=== PATIENT | female | born 1975 | race Caucasian/White ===

== ENCOUNTER → 2016-10-20 | Outpatient (CLI) | payer OTHER ==
--- NOTE | 2016-10-20 13:05 | US ---
October 20, [address] Clements, Thank you for allowing us to see your patient regarding AMA over 40 and Grave's/now hypothyroid. As you know she is a 40 year-old 2, para 1. Her due date is 12/03/16 which is based on 6 week u/s . Her current gestational age based on this dating is 33 weeks 5 days. She was seen previously for t he same. Number of fetuses: 1 Placental location: left lateral no previa presentation: vertex Cervix: suboptimal MVP: 4.9 cm Measurements: Biparietal diameter: 91 mm 36 weeks, 5 days Head circumference: 338 mm 38 weeks, 6 days Abdominal circumference: 318 mm 35 weeks, 5 days Femur length: 65 mm 33 weeks, 5 days Humerus length: 57 mm 33 weeks, 3 days Average ultrasound age: 36 weeks, 2 days Estimated weight: 2712 gm weight percentile: 91 % ANATOMY anatomy was previously assessed. Today the following structures were visualized and appeared n ormal: Supratentorial brain, heart rate 133 bpm, LVOT, RVT, aortic arch, ductal arch, stomach, bladder, right left kidneys The neck was suboptimally seen today however the neck was in a persistent flexed position with no concern for goiter. Impression: This is a 40 year-old, 2, para 1at 33 weeks, 5 days gestation. 1. SIUP with biometry cw ga of 33 weeks. Nl MVP. Limited anatomy reassuring. 2. AMA- she will start NSTs at 36 weeks and planning delivery at 39 weeks 3. Graves- with antibodies <2xnormal, no evidence thyroid disorder. She will continue levothy roxine and evaluation. Thank you for allowing me to see your patient. Approximately 15 minutes was spent with the patient a nd 15 was spent discussing her issues. Clara Soni MD Perinatologist Division of Maternal Medicine Department of Obstetrics and Gynecology [facility]
--- NOTE | 2016-10-20 15:21 | US ---
Follow Up Obstetrical Sonography Clinical History: 41-year-old female with advanced maternal age and a prior history of Graves' diseas e, now hypothyroid, presenting for assessment of anatomy and biometry. TECHNIQUE: A curvilinear 5 MHz transducer was used to sonographically evaluate the fetus and placenta . M-mode Doppler was used. Dr. Clara Soni was present. LMP: February 27, 2016, indicating an age of 33 weeks 5 days, and an estimated date of delivery of December. COMPARISON STUDIES: Obstetrical sonography, dated August 13, 2016 and September 22, 2016. FINDINGS: Again, there is a single viable intrauterine gestation. The fetus is currently vertex in pr esentation. The placenta is left lateral in position, with no previa. Maternal cervical length was no t able to be assessed because of the presence of the head's obscuring the anatomy. The amniotic fluid volume is appropriate with a maximal vertical pocket of 4.9 cm. heart rate is 133 bpm. anatomy has been previously evaluated and on today's study, the supratentorial brain is seen in a limited fashion. The 4 chambered heart, right and left ventricular outflow tracts, aortic and duct al arch, stomach, right and left kidneys, and urinary bladder are seen. biometry is as follows: The biparietal diameter is 91 mm, corresponding to an age of 36 weeks 5 days +/- 3 weeks 2 days, whic h is greater than 98th percentile. The head circumference is 338 mm, corresponding to an age of 38 weeks 6 days +/- 2 weeks 5 days, whic h is greater than the 98th percentile. The head circumference is 318 mm corresponding to an age of 35 weeks 5 days +/- 3 weeks 0 days, which is at the 94th percentile. The femur length is 65 mm corresponding to an age of 33 weeks 5 days +/- 3 weeks 0 days, which is at 37th percentile. The humeral length is 57 mm corresponding to an age of 33 weeks 3 days for a composite gestational ag e of 36 weeks 2 days. The estimated weight is 2712 grams +/- 396 grams which is 6 lbs. 0 oz. +/- 14 ounces, which is at the 91st percentile. The head circumference to abdominal circumference ratio is normal, measuring 1.06. The femur length t o biparietal diameter ratio is 72%, and the femur length to abdominal circumference ratio is 21%. IMPRESSION: There is a single viable intrauterine gestation with no overt structural anomaly an d a normal amniotic fluid volume with biometry at the 91st percentile. Please also refer to Dr. Soni's separate assessments and specific recommendations for follow-up.
== END ==
LOC: FIMAGING 11:58
PROVIDERS: ATTEND Obstetrics & Gynecology
DX: O09.523 Supervision of elderly multigravida, third trimester (principal); O99.283 Endocrine, nutritional and metabolic diseases complicating pregnancy, third trimester; E03.9 Hypothyroidism, unspecified; Z3A.33 33 weeks gestation of pregnancy

== ENCOUNTER 2016-11-04 04:07 | Observation (INO) | payer OTHER ==
--- NOTE | 2016-11-05 17:44 | GHP ---
[f rep st] PREOP HISTORY AND PHYSICAL DATE OF ADMISSION: 11/04/2016 This is an admission and discharge note HISTORY OF PRESENTING ILLNESS: The patient is a 41-year-old, 2, para 1-0-0-1, who was at 36+ weeks' gestation. She was awoken up in the middle of the night with left lower quadrant pain which appeared to be coming and going, so she presented to Labor and Delivery. The patient's cervix was ex amined and found to be fingertip and long, and very posterior. She had occasional contractions on th e monitor but status remained reassuring. The patient was given a large amount of p.o. hydrati on while on Labor and Delivery, and the pain resolved. She did develop pain in the right mid abdomen which she says is very common for her. The patient states she only has a couple glasses of water a day; we had a long discussion about fluid recommendations in labor, precautions, and kick cou nts. Patient does not appear to be in active labor and her pain has resolved. Her heart elaine ng was category 1. The patient was discharged to home with discharge precautions, labor precautions and kick counts. She will follow up in the office as scheduled next week. /[id number]/MODL
== END 2016-11-04 08:21 | disposition home or self-care (01) ==
LOC: FLD 04:07
PROVIDERS: ADMIT Obstetrics & Gynecology; ATTEND Obstetrics & Gynecology
DX: R10.32 Left lower quadrant pain (principal); O09.523 Supervision of elderly multigravida, third trimester; Z3A.36 36 weeks gestation of pregnancy
CPT/HCPCS: 59025; G0378

== ENCOUNTER 2016-11-26 05:32 | Inpatient (IN) | payer OTHER ==
--- NOTE | 2016-11-06 16:27 | GHP ---
[f rep st] PREOP HISTORY AND PHYSICAL Amended report DATE OF PLANNED PROCEDURE: 11/26/2016 PLANNED PROCEDURE: Repeat low transverse section. HISTORY OF PRESENT ILLNESS: The patient is a 41-year-old, 2, para 1-0-0 -1, who will be 39 weeks' gestation. She has a history of a previous low transverse section for arrest of descent and suspected cephalopelvic disproportion. The patient is planning on having a repeat section, especially because the baby has been measuring size greater than dates. The patient has been counseled on options of vaginal after section and is comfortable proceeding with repeat low transverse section. She declines tubal ligation. PAST MEDICAL HISTORY: History of Graves disease, currently hypothyroidism, questionable history of polycystic ovarian syndrome. MEDICATIONS: vitamins and Synthroid. ALLERGIES: No known drug allergies. SOCIAL HISTORY: Patient is . 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 She denies tobacco , alcohol, or drug use. FAMILY MEDICAL HISTORY: Noncontributory. BANQUET STEWARDESS HISTORY: Menarche, age 13. Periods every 30 days, lasting 3-4 days. She is a 2, para 1-0-0-1. In 12/2014, she had a primary low transverse section for arrest of descent after pushing for 5 hours. That was at 40 weeks and 3 days. Current has been uncomplicated. She has been followed by Endocrinology for her Graves disease and hypothyroidism and has had serial growth ultrasounds as the baby has been measuring in the 91st percentile. The patient has started 2 times a week nonstress tests for advanced maternal age. The patient denies any history of any abnormal Pap smears. However, she does have a history of genital warts. She does have a history of infertility. PHYSICAL EXAM: VITAL SIGNS: Stable. GENERAL APPEARANCE: Alert and oriented x3. HEART: Rate is regular/regular. LUNGS: Clear to auscultation bilaterally. ABDOMEN: Gravid, nondistended, nontender. EXTREMITIES: Revealed no calf tenderness or edema. PELVIC: Cervical exam was deferred. is in the vertex presentation, in the 91st percentile. heart tracings have been category 1. LABS: Blood type A positive, antibody screen negative, rubella immune. GBS was collected today. HBsAg negative, HIV negative. Her 50 g glucose was 110. Her Verifi screen was negative. Alpha-fetoprotein was negative. ASSESSMENT AND PLAN: A 41-year-old 2, para 1-0-0-1, who will be 39 weeks' gestation, who will have a repeat section. Previous was done for arrest of descent. The patient has been properly consented. /[id number]/MODL Add acc#, 11/26/16, stephanie BISHOP
[2016-11-26] MEDS ORDERED: LR 500 ML IV ONE (05:47)
[2016-11-26] MEDS ORDERED: CITRIC ACID/SODIUM CITRATE 30 ML UDCUP PO ONE (05:47)
[2016-11-26] MEDS ORDERED: ceFAZolin 2 GM/DEXTROSE 100 ML IV ONE (05:47)
[2016-11-26 06:27] LABS: % IMMATURE GRANULYOCYTES 0.5 % (0.0-1.1); ABSOLUTE IMMATURE GRANULOCYTES 0.03 10^3/uL (0.00-0.10); ADD DIFF? NO; ADD MORPH? NO; ADD SCAN? NO; ATYPICAL LYMPHOCYTE FLAG 20 (0-99); FRAGMENT RBC FLAG 0 (0-99); HEMATOCRIT 40.9 % (38.0-47.0); LEFT SHIFT FLG 0 (0-99); LIPEMIA HEMOLYSIS FLAG 90 (0-99); MEAN CELL HEMOGLOBIN 31.3 pg (27.9-34.1); MEAN CELL HEMOGLOBIN CONCENTR. 34.2 g/dL (32.4-36.7); MEAN CELL VOLUME 91.3 fL (81.5-99.8); MEAN PLATELET VOLUME 10.5 fL (8.7-11.7); PLATELET CLUMPS FLAG 0 (0-99); PLATELET COUNT 205 10^3/uL (150-400); RED BLOOD CELL COUNT 4.48 10^6/uL (4.18-5.33); RED CELL DISTRIBUTION WIDTH 14.6 % (11.5-15.2)
[2016-11-26] MEDS ORDERED: OXYTOCIN 10 UNIT/ML VIAL ONE (06:48)
[2016-11-26] MEDS ORDERED: MISOPROSTOL 200 MCG TAB ONE (06:48)
[2016-11-26] MEDS ORDERED: AMMONIA AROMATIC 1 EACH AMP IH ONE (06:48)
[2016-11-26] MEDS ORDERED: TERBUTALINE SULFATE 1 MG/ML VIAL ONE (06:48)
[2016-11-26] MEDS ORDERED: morphINE PF 5 MG/10 ML INJ ONE (07:41)
[2016-11-26] MEDS ORDERED: LACTULOSE 20 GM/30 ML UDCUP PO PRN (09:02)
[2016-11-26] MEDS ORDERED: BISACODYL 10 MG SUPP PR PRN (09:02)
[2016-11-26] MEDS ORDERED: POLYETHYLENE GLYCOL 3350 17 GM PKT PO PRN (09:02)
[2016-11-26] MEDS ORDERED: SIMETHICONE 80 MG TAB CHEW PO PRN (09:02)
[2016-11-26] MEDS ORDERED: MAGNESIUM HYDROXIDE 30 ML UDCUP PO PRN (09:02)
[2016-11-26] MEDS ORDERED: ACETAMINOPHEN 325 MG TAB PO PRN (09:02)
--- NOTE | 2016-11-26 09:06 | OBPROC ---
- Delivery Pre-op Diagnoses: IUP 39 weeks, prior c section, declines trial of labor Post-op Diagnoses: same Procedure: Repeat, Low Transverse Surgeon: Bharti Clements [place] Justice: Melisa Conte Anesthesiologist: Paco Rueda Warm Anesthesia: Spinal Complications: None EBL: 800 - [place] Info A Delivery Date: 11/26/16 Delivery Time: 08:13 Sex of : Male Score (1 Min): 9 Score (5 Min): 9
--- NOTE | 2016-11-26 10:06 | GOP ---
DATE OF OPERATION: 11/26/2016 SURGEON: Bharti Clements DO BATH TESTER: Melisa Conte DO. ANESTHESIA: Spinal. ANESTHESIOLOGIST: Dr. Yates. PREOPERATIVE DIAGNOSIS: 1. Intrauterine at 39 weeks gestation. 2. History of previous section. 3. Declines trial of labor. POSTOPERATIVE DIAGNOSIS: 1. Intrauterine at 39 weeks gestation. 2. History of previous section. 3. Declines trial of labor. PROCEDURE PERFORMED: Repeat low transverse section. FINDINGS: 1. Viable 8 pound male in the cephalic presentation delivered at 8:13 a.m. Apgars were 9 and 9. 2. Intact placenta with 3-vessel cord. 3. Normal ovaries, uterus, and tubes. ESTIMATED BLOOD LOSS: 800 cc. INDICATIONS: Patient is a 41-year-old, 2, para 1-0-0-1, who is 39 weeks gestation. She has a history of a previous low transverse for arrest of descent and declines trial of labor a nd desires repeat . She has been followed with serial growth ultrasounds in . Th e patient presents today for a repeat low transverse section. She declines tubal ligation. Risks and benefits of the procedure were reviewed with the patient and patient has been properly c onsented. DESCRIPTION OF PROCEDURE: Patient is taken to the operating room with intravenous fluids in place. She was given 2 g of Ancef and seated on the operating room table where spinal anesthesia was obtai yury with ease. She was then repositioned into the dorsal supine position with a leftward tilt. A F oley catheter was placed. Venodynes were placed on her lower extremities and she was then prepped a nd draped in a normal sterile fashion. Anesthesia was assessed and found to be adequate. A Pfannen stiel skin incision was then made 2 fingerbreadths above the pubic symphysis. A previous keloid sca r was then excised at time of incision. The incision was then carried through to the underlying lay er of fascia with the Bovie. The fascia was then nicked in the midline and the fascial incision was extended laterally. The superior aspect of the fascial incision was then grasped with Kochers, ten andres up, and the underlying rectus muscle dissected off bluntly with the Bovie. Attention was then t urned to the inferior aspect of the fascial incision which was then grasped with Kochers, tented up, and the underlying rectus muscle dissected off with the Lopes scissors. The rectus muscle was then in the midline. The peritoneum was identified, tented up, and entered sharply with the Me tzenbaum scissors. The incision was extended superiorly and inferiorly with excellent visualization of the bladder. The bladder blade was inserted. The vesicouterine peritoneum was identified, tent ed up, and entered sharply with the Metzenbaum scissors. The incision was extended laterally and a bladder flap was created digitally. The bladder blade was then reinserted. The uterus was then inc ised in low transverse fashion with the scalpel. The uterine incision was digitally extended latera lly. Membranes were artificially ruptured. A large amount of clear fluid was noted. The 's head was then delivered through the incision and the remainder of the infant's body was then deliver ed atraumatically. The cord was clamped x2 and cut. Cord blood was obtained. The infant was sky d off to awaiting nurse practitioner. Intact placenta with 3-vessel cord delivered without difficulty. The uterus was then exteriorized and cleared of all clots and debris and wrapped in a moist laparotomy sponge. The uterine incision was then closed with 0 Vicryl in a running, locked fa shion. A second 0 Vicryl stitch was used to imbricate the uterine incision. Hemostasis was assured . Ovaries, uterus, and tubes were unremarkable. The uterus was then returned to the patient's abdo men and the gutters were cleared of all clots and debris. The hysterotomy remained hemostatic. Per itoneum was reapproximated with 3-0 Vicryl in a running fashion. Rectus muscle was reapproximated w ith 2-0 Vicryl in a running fashion. Fascia was closed with 0 Vicryl in a running fashion. Subcuta neous tissue was found to be hemostatic and the subcuticular tissue was reapproximated with 3-0 Vicr yl in a running fashion. The skin was then closed with sapna. Sponge, lap, and needle counts wer e correct x2. Patient was transported to the recovery room in stable condition. /[id number]/MODL
[2016-11-26] MEDS ORDERED: KETOROLAC 30 MG/1 ML SDV ONE (10:12)
[2016-11-26] MEDS: KETOROLAC 30 MG/1 ML SDV IVP SCH ×3 (10:13→22:17)
[2016-11-26] MEDS: LR 1,000 ML IV SCH (16:20)
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
[2016-11-26] MEDS: SENNOSIDES/DOCUSATE SODIUM TAB PO SCH (22:18)
[2016-11-27] MEDS: LR 1,000 ML IV SCH (01:35)
[2016-11-27] MEDS: KETOROLAC 30 MG/1 ML SDV IVP SCH (04:47)
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
[2016-11-27] MEDS: HYDROCODONE/APAP 5/325 TAB PO PRN ×4 (09:16→20:33)
[2016-11-27] MEDS: SENNOSIDES/DOCUSATE SODIUM TAB PO SCH ×2 (09:17→20:33)
[2016-11-27] MEDS: LEVOTHYROXINE 50 MCG TAB PO SCH (09:19)
[2016-11-27] MEDS: IBUPROFEN 600 MG TAB PO PRN ×3 (10:49→23:33)
[2016-11-28] MEDS: IBUPROFEN 600 MG TAB PO PRN ×3 (05:54→18:29)
[2016-11-28] MEDS: HYDROCODONE/APAP 5/325 TAB PO PRN ×4 (05:55→23:05)
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
[2016-11-28] MEDS: SENNOSIDES/DOCUSATE SODIUM TAB PO SCH ×2 (08:42→20:53)
[2016-11-28] MEDS: LEVOTHYROXINE 50 MCG TAB PO SCH (12:48)
[2016-11-28 20:52] VITALS: O2SAT 90
[2016-11-29] MEDS: IBUPROFEN 600 MG TAB PO PRN ×3 (00:33→12:50)
[2016-11-29] MEDS: HYDROCODONE/APAP 5/325 TAB PO PRN ×3 (04:42→14:19)
[2016-11-29] MEDS: LEVOTHYROXINE 50 MCG TAB PO SCH (07:49)
[2016-11-29] MEDS: SENNOSIDES/DOCUSATE SODIUM TAB PO SCH (08:52)
[2016-11-29 09:49] VITALS: BP 114/69; PULSE 88; RESP 18; TEMP 97.7
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
== END 2016-11-29 16:04 | disposition home or self-care (01) | DRG 766 ==
LOC: FLD 05:32 → FOB 11:56
PROVIDERS: ADMIT Obstetrics & Gynecology; ATTEND Obstetrics & Gynecology
PROC: 10D00Z1 Extraction of Products of Conception, Low, Open Approach (ICD-10-PCS; principal; 2016-11-26)
DX: O34.219 Maternal care for unspecified type scar from previous cesarean delivery (principal); O09.523 Supervision of elderly multigravida, third trimester; O99.284 Endocrine, nutritional and metabolic diseases complicating childbirth; E03.9 Hypothyroidism, unspecified; Z3A.39 39 weeks gestation of pregnancy; Z37.0 Single live birth
CPT/HCPCS: J0690; J1885; J2274; J3105

== ENCOUNTER 2017-06-05 15:49 | Emergency (ER) | payer OTHER ==
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
[2017-06-05 16:57] VITALS: BP 102/67; PULSE 83; RESP 15; TEMP 97.7; O2SAT 95
== END 2017-06-05 17:03 | disposition home or self-care (01) ==
DX: S92.515A Nondisplaced fracture of proximal phalanx of left lesser toe(s), initial encounter for closed fracture (principal); W22.01XA Walked into wall, initial encounter; Y92.009 Unspecified place in unspecified non-institutional (private) residence as the place of occurrence of the external cause; Y99.8 Other external cause status; Y93.01 Activity, walking, marching and hiking
CPT/HCPCS: L3260

== ENCOUNTER 2017-10-21 22:14 | Emergency (ER) | payer OTHER ==
[2017-10-21 22:20] VITALS: O2SAT 93
--- NOTE | 2017-10-21 22:46 | EDPHY ---
H & P Stated Complaint: fever/sore throat since AM Time Seen by Provider: 10/21/17 22:45 HPI/ROS: HPI: This is a 42-year-old female who presents with Chief Complaint: Fever and sore throat since this morning Location:throat Quality: Sore Duration: 1 day Signs and Symptoms:+ fever, no neck stiffness, + mild dull aching headache, + nausea, no vomiting, no body aches, no runny nose, no cough Timing: Sudden, constant Severity: Moderate Context: Patient is generally healthy presents with sudden onset of sore throat this morning that worsens with eating but is still able to drink fluids accompanied by subjective fever. Last took ibuprofen at 2:00 p.m. patient denies any cough/shortness of breath/neck stiffness/runny nose/body aches. Received influenza vaccine in August of 2017. LMP 2 weeks ago Modifying Factors: See above Comment: ROS: see HPI Constitutional: No fever, no chills, no weight loss Eyes: No blurred vision Respiratory: No shortness of breath, no cough Cardiovascular: No chest pain Gastrointestinal: No nausea, no vomiting, no diarrhea Genitourinary: No dysuria Extremities: No myalgias Neurologic: No weakness, no numbness Skin: No rashes Hematologic: No bruising, no bleeding MEDICAL/SURGICAL/SOCIAL HISTORY: Medical history: hyperthyrodism Hx previous C/S- arrest of descent Hx Graves disease, now hypothyroid AMA Surgical history: Denies Social history: Employed. CONSTITUTIONAL: Ill-appearing adult white female, awake and alert, no obvious distress HEENT: Atraumatic and normocephalic, PERRL, EOMI. Tympanic membranes clear. Oropharynx clear, tonsils 1+; no erythema; uvula midline; + white exudate and moist pink mucosa. Airway patent. No lymphadenopathy. No meningismus. Cardiovascular: Normal S1/S2, tachycardia, regular rhythm, without murmur rub or gallop. PULMONARY/CHEST: Symmetrical and nontender. Clear to auscultation bilaterally. Good air movement. No accessory muscle usage. ABDOMEN: Soft, nondistended, nontender, no rebound, no guarding, no peritoneal signs, no masses or organomegaly. No CVAT. EXTREMITIES: 2/2 pulses, strength 5/5, no deformities, no clubbing, no cyanosis or edema. NEUROLOGICAL: no focal neuro deficits. GCS 15. SKIN: Warm and dry, no erythema. no rash. Good capillary refill. Source: Patient Exam Limitations: No limitations - Personal History LMP (Females 10-55): 8-14 Days Ago Current Tetanus/Diphtheria Vaccine: Yes Tetanus Vaccine Date: <10 years - Medical/Surgical History Hx Asthma: No Hx Chronic Respiratory Disease: No Hx Diabetes: No Hx Cardiac Disease: No Hx Renal Disease: No Hx Cirrhosis: No Hx Alcoholism: No Hx HIV/AIDS: No Hx Splenectomy or Spleen Trauma: No Other PMH: hyperthyrodism. Hx previous C/S- arrest of descent. Hx Graves disease, now hypothyroid. AMA - Social History Smoking Status: Never smoked Constitutional: Initial Vital Signs Temperature (C) 37.6 C 10/21/17 22:16 Heart Rate 114 H 10/21/17 22:16 Respiratory Rate 18 10/21/17 22:16 Blood Pressure 105/55 L 10/21/17 22:16 O2 Sat (%) 93 10/21/17 22:16 Allergies/Adverse Reactions: dicloxacillin Allergy (Verified 10/21/17 22:20) Penicillins Allergy (Verified 06/05/17 15:53) Home Medications: Medication Instructions Recorded 1 tab PO DAILY 08/27/14 Lidocaine 2% Viscous 15 ml MM Q6 PRN #100 ml 10/22/17 Medical Decision Making ED Course/Re-evaluation: Strep test, influenza test, oral medications ordered Patient given Letha and PO Decadron 8 mg No Signs of tonsillar abscess/Ludwigs angina/meningitis/otitis media/sinusitis Abdominal exam benign and no urinary symptoms Influenza and strep negative. Labs reviewed with mild leukocytosis 0055: Reassessed patient and now she is requesting laboratory workup and IV fluids as she is concerned she has 2 small children at home and she does not want to get them sick. 0150: Reassessed patient who reports that she is feeling much better. She is ready to call an Uber and go home. This patient was seen under the supervision of my secondary supervising physician. I evaluated care for this patient independently. Discussed this patient with Dr. Marcelino who did not see the patient. Patient's presentation, labs/imaging, treatment and plan of care were discussed with secondary supervising physician. Differential Diagnosis: Adult fever including but not limited to viral syndromes including influenza, strep, viral syndrome and sepsis. - Data Points Laboratory Results: Laboratory Results 10/22/17 00:50 10/22/17 00:50 10/22/17 10/22/17 10/21/17 00:50 00:50 Unknown WBC 14.62 10^3/uL H 10^3/uL (3.80-9.50) RBC 4.81 10^6/uL 10^6/uL (4.18-5.33) Hgb 14.2 g/dL g/dL (12.6-16.3) Hct 41.2 % % (38.0-47.0) MCV 85.7 fL fL (81.5-99.8) MCH 29.5 pg pg (27.9-34.1) MCHC 34.5 g/dL g/dL (32.4-36.7) RDW 13.9 % % (11.5-15.2) Plt Count 256 10^3/uL 10^3/uL (150-400) MPV 9.6 fL fL (8.7-11.7) Neut % (Auto) 93.3 % H % (39.3-74.2) Lymph % (Auto) 3.6 % L % (15.0-45.0) [place] % (Auto) 2.4 % L % (4.5-13.0) Eos % (Auto) 0.0 % L % (0.6-7.6) Baso % (Auto) 0.3 % % (0.3-1.7) Nucleat RBC Rel Count 0.0 % % (0.0-0.2) Absolute Neuts (auto) 13.63 10^3/uL H 10^3/uL (1.70-6.50) Absolute Lymphs (auto) 0.53 10^3/uL L 10^3/uL (1.00-3.00) Absolute Monos (auto) 0.35 10^3/uL 10^3/uL (0.30-0.80) Absolute Eos (auto) 0.00 10^3/uL L 10^3/uL (0.03-0.40) Absolute Basos (auto) 0.05 10^3/uL 10^3/uL (0.02-0.10) Absolute Nucleated RBC 0.00 10^3/uL 10^3/uL (0-0.01) Immature Gran % 0.4 % % (0.0-1.1) Immature Gran # 0.06 10^3/uL 10^3/uL (0.00-0.10) Sodium 137 mEq/L mEq/L (135-145) Potassium 4.2 mEq/L mEq/L (3.5-5.2) Chloride 102 mEq/L mEq/L (97-110) Carbon Dioxide 23 mEq/l mEq/l (22-31) Anion Gap 12 mEq/L mEq/L (8-16) BUN 14 mg/dL mg/dL (7-23) Creatinine 0.7 mg/dL mg/dL (0.6-1.0) Estimated GFR > 60 Glucose 129 mg/dL H mg/dL (70-100) Calcium 9.5 mg/dL mg/dL (8.5-10.4) Total Bilirubin 0.9 mg/dL mg/dL (0.1-1.4) AST 19 IU/L IU/L (14-46) ALT 47 IU/L IU/L (9-52) Alkaline Phosphatase 81 IU/L IU/L (38-126) Total Protein 7.0 g/dL g/dL (6.3-8.2) Albumin 4.2 g/dL g/dL (3.5-5.0) Nasal Influenza A PCR Nasal Influenza B PCR Group A Strep Screen Group A Strep DNA Pending 10/21/17 10/21/17 23:00 22:49 WBC RBC Hgb Hct MCV MCH MCHC RDW Plt Count MPV Neut % (Auto) Lymph % (Auto) [place] % (Auto) Eos % (Auto) Baso % (Auto) Nucleat RBC Rel Count Absolute Neuts (auto) Absolute Lymphs (auto) Absolute Monos (auto) Absolute Eos (auto) Absolute Basos (auto) Absolute Nucleated RBC Immature Gran % Immature Gran # Sodium Potassium Chloride Carbon Dioxide Anion Gap BUN Creatinine Estimated GFR Glucose Calcium Total Bilirubin AST ALT Alkaline Phosphatase Total Protein Albumin Nasal Influenza A PCR NEGATIVE FOR FLU A (NEGATIVE) Nasal Influenza B PCR NEGATIVE FOR FLU B (NEGATIVE) Group A Strep Screen NEGATIVE (NEGATIVE) Group A Strep DNA Medications Given: Discontinued Medications Hydrocodone Bitart/Acetaminophen (Letha 5/325) 1 tab PO EDNOW ONE Stop: 10/21/17 22:51 Last Admin: 10/21/17 23:11 Dose: 1 tab Dexamethasone (Decadron) 8 mg PO EDNOW ONE Stop: 10/21/17 22:51 Last Admin: 10/21/17 23:11 Dose: 8 mg Sodium Chloride (Ns) 1,000 mls @ 0 mls/hr IV EDNOW ONE; Wide Open PRN Reason: Protocol Stop: 10/22/17 00:39 Last Admin: 10/22/17 00:52 Dose: 1,000 mls Sodium Chloride (Ns) 1,000 mls @ 0 mls/hr IV EDNOW ONE; Wide Open PRN Reason: Protocol Stop: 10/22/17 00:39 Last Admin: 10/22/17 00:53 Dose: 1,000 mls Departure - Departure Disposition: Home, Routine, Self-Care Clinical Impression: Viral syndrome Condition: Good Instructions: Viral Syndrome (ED) Additional Instructions: Please rest as much as possible until you are feeling better. Drink plenty of fluids that include electrolyte replacement drinks like Gatorade or Powerade. Take Tylenol or and/or ibuprofen as needed for fever, headache, pain. Referrals: Anuradha Ascencio MD [Primary Care Provider] - 3-4 days, if not improved Prescriptions: Lidocaine 2% Viscous 15 ml MM Q6 PRN #100 ml PRN Reason: Sore Throat
[2017-10-21] MEDS ORDERED: HYDROCODONE/APAP 5/325 TAB PO ONE (22:50)
[2017-10-21] MEDS ORDERED: DEXAMETHASONE 4 MG TAB PO ONE (22:50)
[2017-10-22] MEDS ORDERED: NS 1,000 ML IV ONE ×2 (00:38)
[2017-10-22 01:02] LABS: PLATELET COUNT 256 10^3/uL (150-400)
[2017-10-22 01:54] VITALS: BP 97/43; PULSE 88; RESP 16; TEMP 98.6
== END 2017-10-22 01:54 | disposition home or self-care (01) ==
DX: B34.9 Viral infection, unspecified (principal); E86.9 Volume depletion, unspecified